=== PATIENT | male | born 2000 | race Two or more races ===

== ENCOUNTER 2022-11-13 15:45 | Inpatient (IN) | payer OTHER ==
[~2022-11-13] VITALS: Ht 162.6 cm; Wt 67.0 kg
[2022-11-13 16:28] LABS: Basophils # (auto) 0 10 ^3/uL (0-0.2); Basophils % (auto) 0.2 % (0.0-2.0); Eosinophils # (auto) 0.1 10 ^3/uL (0-0.8); Eosinophils % (auto) 0.8 % (0.0-7.0); Hematocrit 41.4 % (41.0-53.0); Lymphocytes % (auto) 12.4 % (10.0-50.0); Mean Corpuscular Hemoglobin 28.2 pg (28.0-32.0); Mean Corpuscular Hgb Conc. 33.7 g/dL (32.0-36.0); Mean Corpuscular Volume 83.8 fL (80.0-100.0); Monocytes # (auto) 1.1 10 ^3/uL (0-1.3); Monocytes % (auto) 6.9 % (0.0-12.0); Neutrophils # (auto) 12.6 10 ^3/uL (1.6-8.6); Neutrophils % (auto) 79.7 % (37.0-80.0); Nucleated Red Blood Cells % 0.1 %; Red Blood Cells 4.95 10^6/uL (4.5-5.90); Red Cell Distribution Width 13.2 % (11.8-14.3); White Blood Cell 15.8 10^3/uL (4.4-10.8)
[2022-11-13 16:40] LABS: Urine Bacteria FEW /hpf (None Seen); Urine Blood Negative /uL (Negative); Urine Mucus FEW (None Seen); Urine Specific Gravity 1.034 (1.001-1.035); Urine WBC 1 /hpf (0 - 3)
[2022-11-13 16:50] LABS: Albumin 3.5 g/dL (3.4-5.0); Calcium 9.6 mg/dL (8.5-10.1); Potassium 3.6 mmol/L (3.5-5.1)
[2022-11-13 16:53] LABS: BUN/Creatinine Ratio 10.1; Total Protein 7.5 g/dL (6.4-8.2)
[2022-11-13] MEDS ORDERED: SODIUM CHLORIDE 0.9% 500 ML IVB ONE (17:00)
[2022-11-13] MEDS ORDERED: SODIUM CHLORIDE 0.9% 1,000 ML IV ONE (17:00)
[2022-11-13] MEDS ORDERED: cefTRIAXone 1GM/50ML D5W 50 ML IV ONE (18:30)
[2022-11-13] MEDS ORDERED: metroNIDAZOLE 500MG/100ML 100 ML IV ONE (19:00)
[2022-11-13] MEDS ORDERED: KETOROLAC TROMETH 30 MG/ML 1ML VIAL IV ONE (19:00)
[2022-11-13] MEDS ORDERED: ALBUTEROL SULF 2.5 MG/0.5ML(0.5%) NEB SOLN NEB PRN (19:00)
[2022-11-13] MEDS ORDERED: ALBUTEROL MEDNEB 2.5 mg/3ml NEB NEB PRN (19:15)
[2022-11-13 19:45] VITALS: BP 133/74
[2022-11-13] MEDS: SODIUM CHLORIDE 0.9% 1,000 ML IV SCH (21:51)
[2022-11-13 23:20] LABS: INR 1.04 (0.9-1.15); Partial Thromboplastin Time 32.5 sec (24.6-33.4)
[2022-11-14 05:46] LABS: Basophils # (auto) 0 10 ^3/uL (0-0.2); Basophils % (auto) 0.2 % (0.0-2.0); Eosinophils # (auto) 0.1 10 ^3/uL (0-0.8); Hematocrit 37.8 % (41.0-53.0); Hemoglobin 12.8 g/dL (13.5-17.5); Lymphocytes % (auto) 15.1 % (10.0-50.0); Mean Corpuscular Hemoglobin 28.3 pg (28.0-32.0); Mean Corpuscular Hgb Conc. 33.8 g/dL (32.0-36.0); Mean Corpuscular Volume 83.7 fL (80.0-100.0); Monocytes % (auto) 7.4 % (0.0-12.0); Neutrophils # (auto) 9.9 10 ^3/uL (1.6-8.6); Neutrophils % (auto) 76.3 % (37.0-80.0); Red Blood Cells 4.51 10^6/uL (4.5-5.90)
[2022-11-14 06:06] LABS: Albumin 3.2 g/dL (3.4-5.0); BUN/Creatinine Ratio 14.9; Calcium 9.3 mg/dL (8.5-10.1); Potassium 3.9 mmol/L (3.5-5.1)
[2022-11-14 06:09] LABS: Bilirubin, Total 0.7 mg/dL (0.2-1.0); Total Protein 6.8 g/dL (6.4-8.2)
[2022-11-14] MEDS ORDERED: LIDOCAINE 2% JELLY 11ml (GLYDO) ONE (07:25)
[2022-11-14] MEDS ORDERED: SUCCINYLCHOLINE CHLORIDE 20 MG/ML 10ML VIAL IV ONE (07:25)
[2022-11-14] MEDS: metroNIDAZOLE 500MG/100ML 100 ML IV SCH ×3 (07:34→20:00)
[2022-11-14] MEDS: SODIUM CHLORIDE 0.9% 1,000 ML IV SCH ×2 (07:34→14:29)
[2022-11-14] MEDS ORDERED: LIDOCAINE 1%-Mpf/Epinephrine 1:200,000 ONE (08:28)
[2022-11-14] MEDS ORDERED: NEOSTIGMINE 1 MG/ML INJ (10mg/10ML VIAL) IV ONE (08:30)
[2022-11-14] MEDS ORDERED: ROCURONIUM 10MG/ML 10ML VIAL IV ONE (08:30)
[2022-11-14] MEDS ORDERED: GLYCOPYRROLATE 0.2 MG/ML 1ML VIAL IV ONE (08:30)
[2022-11-14] MEDS ORDERED: BUPIVACAINE HCL 0.25% P/F 10 ML VIAL ONE (08:41)
[2022-11-14] MEDS ORDERED: BUPIVACAINE 0.25% INJ 50ML VIAL ONE (08:56)
[2022-11-14] MEDS ORDERED: fentaNYL CITRATE 100 MCG/2 ML VL ONE ×2 (09:06→12:00)
[2022-11-14] MEDS ORDERED: MIDAZOLAM HCL 2MG/2ML 2ml VIAL (1mg/ml) ONE (09:07)
[2022-11-14] MEDS ORDERED: MEPERIDINE HCL (50 MG/ML) 1 ML VIAL ONE (09:07)
[2022-11-14] MEDS: cefTRIAXone 1GM/50ML D5W 50 ML IV SCH (09:27)
[2022-11-14] MEDS ORDERED: DexAMETHasone SOD PHOS 10MG/1ML VIAL INJ ONE (10:46)
[2022-11-14] MEDS ORDERED: ONDANSETRON HCL 4 MG/2 ML VIAL ONE (10:49)
[2022-11-14] MEDS ORDERED: ONDANSETRON HCL 4 MG/2 ML VIAL IV PRN (11:30)
[2022-11-14] MEDS ORDERED: LABETALOL HCL 5 MG/ML 4ML SYRINGE IV PRN (11:30)
[2022-11-14] MEDS ORDERED: MIDAZOLAM HCL 2MG/2ML 2ml VIAL (1mg/ml) IV PRN (11:30)
[2022-11-14] MEDS ORDERED: KETOROLAC TROMETH 30 MG/ML 1ML VIAL IV ONE (11:30)
[2022-11-14] MEDS ORDERED: MORPHINE SULFATE 4 MG/ML SYR/VIAL IV PRN (11:30)
[2022-11-14] MEDS ORDERED: ePHEDrine SULFATE 50 MG/ML AMP IV PRN (11:30)
[2022-11-14] MEDS ORDERED: HYDROmorphone HCL 2 MG/ML VL/or syr IV PRN (11:30)
[2022-11-14] MEDS ORDERED: HYDROmorphone HCL 2 MG/ML VL/or syr IV ONE (12:55)
[2022-11-14] MEDS ORDERED: MORPHINE SULFATE INJ 2 MG/ml SYRG IV PRN (13:15)
[2022-11-14 14:00] VITALS: BP 109/62
[2022-11-14] MEDS ORDERED: HYDROcodone-ACET 5/325MG TAB PO PRN (14:30)
[2022-11-14] MEDS: HYDROcodone-ACET 5/325MG TAB PO PRN ×2 (14:50→22:18)
[2022-11-14] MEDS ORDERED: CABO1SUS IM (15:47)
[2022-11-14 16:01] VITALS: BP 106/52
[2022-11-14 17:00] VITALS: BP 105/50
[2022-11-14 20:00] VITALS: BP 109/58
[2022-11-14] MEDS: MORPHINE SULFATE INJ 2 MG/ml SYRG IV PRN (20:02)
[2022-11-14 22:00] VITALS: BP 109/58
[2022-11-15] MEDS: MORPHINE SULFATE INJ 2 MG/ml SYRG IV PRN ×5 (00:09→20:42)
[2022-11-15] MEDS: SODIUM CHLORIDE 0.9% 1,000 ML IV SCH ×2 (01:03→10:07)
[2022-11-15] MEDS: metroNIDAZOLE 500MG/100ML 100 ML IV SCH ×3 (04:20→20:34)
[2022-11-15 05:00] VITALS: BP 114/56
[2022-11-15] MEDS: cefTRIAXone 1GM/50ML D5W 50 ML IV SCH (08:52)
[2022-11-15 09:00] VITALS: BP 111/56
[2022-11-15 13:00] VITALS: BP 104/58
[2022-11-15 17:00] VITALS: BP 124/65
[2022-11-15 19:50] VITALS: BP 113/60
[2022-11-15 22:00] VITALS: BP 113/60
[2022-11-16] VITALS (8 sets, daily range): BP systolic 114–134; BP diastolic 61–78
[2022-11-16] MEDS: metroNIDAZOLE 500MG/100ML 100 ML IV SCH ×3 (04:13→20:09)
[2022-11-16] MEDS: MORPHINE SULFATE INJ 2 MG/ml SYRG IV PRN ×3 (04:14→16:28)
[2022-11-16 06:10] LABS: Basophils # (auto) 0 10 ^3/uL (0-0.2); Basophils % (auto) 0.4 % (0.0-2.0); Eosinophils # (auto) 0.1 10 ^3/uL (0-0.8); Eosinophils % (auto) 1.4 % (0.0-7.0); Hematocrit 25.8 % (41.0-53.0); Hemoglobin 8.8 g/dL (13.5-17.5); Lymphocytes # (auto) 2.2 10 ^3/uL (0.4-5.4); Mean Corpuscular Hemoglobin 28.3 pg (28.0-32.0); Mean Corpuscular Hgb Conc. 33.9 g/dL (32.0-36.0); Mean Corpuscular Volume 83.4 fL (80.0-100.0); Monocytes # (auto) 0.8 10 ^3/uL (0-1.3); Monocytes % (auto) 8.5 % (0.0-12.0); Neutrophils # (auto) 6.5 10 ^3/uL (1.6-8.6); Neutrophils % (auto) 66.7 % (37.0-80.0); Red Cell Distribution Width 12.6 % (11.8-14.3); White Blood Cell 9.8 10^3/uL (4.4-10.8)
[2022-11-16 06:37] LABS: Calcium 8.1 mg/dL (8.5-10.1); Potassium 3.4 mmol/L (3.5-5.1)
[2022-11-16] MEDS: cefTRIAXone 1GM/50ML D5W 50 ML IV SCH (09:32)
[2022-11-16] MEDS ORDERED: ACETAMINOPHEN 325 MG TAB PO PRN (12:30)
[2022-11-16] MEDS ORDERED: SENNA 8.6 MG TAB PO PRN (12:30)
[2022-11-16] MEDS ORDERED: LACTULOSE 20Gm/30ML SOLN PO PRN (12:30)
[2022-11-16] MEDS: HYDROcodone-ACET 5/325MG TAB PO PRN (13:24)
[2022-11-16] MEDS ORDERED: SENNA 8.6 MG TAB PO SCH (22:00)
[2022-11-17] VITALS (7 sets, daily range): BP systolic 116–139; BP diastolic 63–79
[2022-11-17] MEDS: MORPHINE SULFATE INJ 2 MG/ml SYRG IV PRN ×3 (00:44→18:49)
[2022-11-17] MEDS: metroNIDAZOLE 500MG/100ML 100 ML IV SCH ×3 (04:05→20:36)
[2022-11-17 06:24] LABS: Hematocrit 27.2 % (41.0-53.0); Hemoglobin 9.5 g/dL (13.5-17.5); Mean Corpuscular Hemoglobin 29.1 pg (28.0-32.0); Mean Corpuscular Hgb Conc. 35.1 g/dL (32.0-36.0); Mean Corpuscular Volume 82.9 fL (80.0-100.0); Red Blood Cells 3.28 10^6/uL (4.5-5.90); Red Cell Distribution Width 12.5 % (11.8-14.3); White Blood Cell 7.5 10^3/uL (4.4-10.8)
[2022-11-17 06:41] LABS: Potassium 3.6 mmol/L (3.5-5.1)
[2022-11-17 06:50] LABS: Basophils % (manual) 0 (0.0-2.0); Blast Cells 0; Eosinophils % (manual) 0 (0-7); Metamyelocytes % 0; Myelocytes % 0; Promyelocytes % 0; Reactive Lymphocytes 0
[2022-11-17 06:51] LABS: Calcium 8.4 mg/dL (8.5-10.1)
[2022-11-17] MEDS: cefTRIAXone 1GM/50ML D5W 50 ML IV SCH (09:10)
[2022-11-17 11:52] LABS: Band Neutrophils % (manual) 3; Lymphocytes % (manual) 38 (10.0-50.0); Monocytes % (manual) 6 (0-12)
[2022-11-18] MEDS: metroNIDAZOLE 500MG/100ML 100 ML IV SCH ×3 (03:49→20:13)
[2022-11-18 05:00] VITALS: BP 116/65
[2022-11-18 08:00] VITALS: BP 115/69
[2022-11-18] MEDS: cefTRIAXone 1GM/50ML D5W 50 ML IV SCH (09:06)
[2022-11-18 12:00] VITALS: BP 111/56
[2022-11-18] MEDS: HYDROcodone-ACET 5/325MG TAB PO PRN (13:40)
[2022-11-18 16:00] VITALS: BP 113/66
[2022-11-18 20:00] VITALS: BP 115/64
[2022-11-18 22:00] VITALS: BP 115/64
[2022-11-19] VITALS (7 sets, daily range): BP systolic 105–122; BP diastolic 56–68
[2022-11-19 02:01] LABS: Hepatitis C Antibody Negative (Negative)
[2022-11-19] MEDS: metroNIDAZOLE 500MG/100ML 100 ML IV SCH ×3 (04:08→21:55)
[2022-11-19] MEDS: cefTRIAXone 1GM/50ML D5W 50 ML IV SCH (08:51)
[2022-11-19] MEDS: MORPHINE SULFATE INJ 2 MG/ml SYRG IV PRN (13:33)
[2022-11-19] MEDS: HYDROcodone-ACET 5/325MG TAB PO PRN (17:12)
[2022-11-20] MEDS: metroNIDAZOLE 500MG/100ML 100 ML IV SCH ×3 (04:06→20:22)
[2022-11-20 05:00] VITALS: BP 118/77
[2022-11-20 06:34] LABS: Basophils # (auto) 0 10 ^3/uL (0-0.2); Basophils % (auto) 0.3 % (0.0-2.0); Eosinophils # (auto) 0.3 10 ^3/uL (0-0.8); Eosinophils % (auto) 3.2 % (0.0-7.0); Hematocrit 31.3 % (41.0-53.0); Hemoglobin 10.6 g/dL (13.5-17.5); Lymphocytes % (auto) 19.5 % (10.0-50.0); Mean Corpuscular Hemoglobin 28.5 pg (28.0-32.0); Mean Corpuscular Hgb Conc. 33.9 g/dL (32.0-36.0); Mean Corpuscular Volume 84.2 fL (80.0-100.0); Monocytes # (auto) 0.7 10 ^3/uL (0-1.3); Monocytes % (auto) 7.1 % (0.0-12.0); Neutrophils # (auto) 7.1 10 ^3/uL (1.6-8.6); Neutrophils % (auto) 69.9 % (37.0-80.0); Red Blood Cells 3.71 10^6/uL (4.5-5.90); Red Cell Distribution Width 12.9 % (11.8-14.3); White Blood Cell 10.2 10^3/uL (4.4-10.8)
[2022-11-20 06:54] LABS: Albumin 2.9 g/dL (3.4-5.0); BUN/Creatinine Ratio 18.8; Bilirubin, Total 0.6 mg/dL (0.2-1.0); Calcium 8.5 mg/dL (8.5-10.1); Total Protein 6.3 g/dL (6.4-8.2)
[2022-11-20 08:07] LABS: Potassium 3.7 mmol/L (3.5-5.1)
[2022-11-20 09:00] VITALS: BP 106/56
[2022-11-20] MEDS ORDERED: CIPR-173 PO (09:31)
[2022-11-20] MEDS ORDERED: METR500T PO (09:31)
[2022-11-20] MEDS ORDERED: HYDR-4902 PO (09:32)
[2022-11-20] MEDS: cefTRIAXone 1GM/50ML D5W 50 ML IV SCH (09:50)
[2022-11-20] MEDS: HYDROcodone-ACET 5/325MG TAB PO PRN ×2 (09:50→17:33)
[2022-11-20 12:48] VITALS: BP 107/54
[2022-11-20 16:55] VITALS: BP 112/52
[2022-11-20 20:15] VITALS: BP 113/58
[2022-11-20 22:00] VITALS: BP 113/58
[2022-11-20] MEDS: ACETAMINOPHEN/CODEINE#3 (300/30mg) TAB PO PRN (23:33)
[2022-11-21] MEDS: metroNIDAZOLE 500MG/100ML 100 ML IV SCH (03:15)
[2022-11-21 05:00] VITALS: BP 109/63
[2022-11-21] MEDS: ACETAMINOPHEN/CODEINE#3 (300/30mg) TAB PO PRN ×2 (06:45→11:18)
[2022-11-21 08:00] VITALS: BP 105/59
[2022-11-21] MEDS: cefTRIAXone 1GM/50ML D5W 50 ML IV SCH (09:19)
[2022-11-21 12:00] VITALS: BP 108/53
[2022-11-21 14:06] VITALS: BP 108/53
== END 2022-11-21 15:36 | disposition home or self-care (01) | DRG 233 ==
LOC: ER 15:45 → OVERFLOW 18:51 → CENTRAL 11-14 13:40
PROVIDERS: ADMIT Nurse Practitioner Family; ATTEND Internal Medicine Pulmonary Disease
PROC: 0DTJ4ZZ Resection of Appendix, Percutaneous Endoscopic Approach (ICD-10-PCS; principal; 2022-11-14 10:19)
DX: K35.33 Acute appendicitis with perforation, localized peritonitis, and gangrene, with abscess (principal); K85.90 Acute pancreatitis without necrosis or infection, unspecified; R18.8 Other ascites; K56.7 Ileus, unspecified; L02.211 Cutaneous abscess of abdominal wall; J45.909 Unspecified asthma, uncomplicated; Z20.822 Contact with and (suspected) exposure to COVID-19; Z21 Asymptomatic human immunodeficiency virus [HIV] infection status
CPT/HCPCS: 36415; 71046; 74176; 80048; 80053; 81001; 85007; 85025; 85027; 85610; 85730; 86803; 86850; 86900; 86901; 87340; 87426; 94640; 96361; 96365; 96367; 96375; 97110; 97116; 97530; G0378; J0330; J0696; J1100; J1885; J2250; J2405; J3490